=== PATIENT | female | born 2000 | race African-American/Black ===

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

== ENCOUNTER 2020-05-05 13:51 | Emergency (ER) | payer SELFPAY ==
[~2020-05-05] VITALS: Ht 165.1 cm; Wt 72.6 kg
[2020-05-05 14:53] VITALS: BP 141/71
[2020-05-05 16:34] LABS: Urine Bacteria NONE SEEN /hpf (None Seen); Urine Blood Negative /uL (Negative); Urine Specific Gravity 1.026 (1.001-1.035); Urine WBC <1 /hpf (0 - 5)
[2020-05-05] MEDS ORDERED: SODIUM CHLORIDE 0.9% 1,000 ML IV ONE (16:45)
[2020-05-05 17:00] LABS: Basophils # (auto) 0 10 ^3/uL (0-0.2); Monocytes # (auto) 0.6 10 ^3/uL (0-1.3); White Blood Cell 5.3 10^3/uL (4.4-10.8)
[2020-05-05 17:02] LABS: Basophils % (auto) 0.1 % (0.0-2.0); Eosinophils # (auto) 0.1 10 ^3/uL (0-0.8); Eosinophils % (auto) 1.1 % (0.0-7.0); Hematocrit 30.7 % (36.0-46.0); Hemoglobin 10.4 g/dL (12.2-16.2); Lymphocytes # (auto) 1.9 10 ^3/uL (0.4-5.4); Mean Corpuscular Hemoglobin 24.9 pg (28.0-32.0); Mean Corpuscular Hgb Conc. 33.8 g/dL (32.0-36.0); Mean Corpuscular Volume 73.6 fL (80.0-100.0); Monocytes % (auto) 10.6 % (0.0-12.0); Neutrophils # (auto) 2.8 10 ^3/uL (1.6-8.6); Neutrophils % (auto) 53.2 % (37.0-80.0); Nucleated Red Blood Cells % 0.1 %; Platelet Count (auto) 237 10^3/uL (140-450); Red Blood Cells 4.18 10^6/uL (4.0-5.20); Red Cell Distribution Width 16.7 % (11.8-14.3)
[2020-05-05 17:14] LABS: Albumin 3.1 g/dL (3.4-5.0); Calcium 9.8 mg/dL (8.5-10.1); Potassium 3.7 mmol/L (3.5-5.1)
[2020-05-05 17:18] LABS: Bilirubin, Total 0.2 mg/dL (0.2-1.0); Total Protein 7.5 g/dL (6.4-8.2)
[2020-05-05 17:20] LABS: BUN/Creatinine Ratio 15.5
[2020-05-05 19:57] LABS: Amphetamine Screen, Urine NEGATIVE (NEGATIVE); Barbiturate Scree,Urine NEGATIVE (NEGATIVE); Benzodiazephine Screen, Urine NEGATIVE (NEGATIVE); Cannabinoid Screen, Urine NEGATIVE (NEGATIVE); Cocaine Screen, Urine NEGATIVE (NEGATIVE); Opiate Scree,Urine NEGATIVE (NEGATIVE); Phencyclidine Screen, Urine NEGATIVE (NEGATIVE)
[2020-05-05 20:15] LABS: Alcohol, Urine < 3.0 mg/dL (0-10)
== END 2020-05-05 20:32 | disposition home or self-care (01) ==
LOC: ER 13:51
DX: R42 Dizziness and giddiness (principal); Z53.21 Procedure and treatment not carried out due to patient leaving prior to being seen by health care provider
CPT/HCPCS: 36415; 80053; 80307; 81001; 81025; 84484; 84702; 85025

== ENCOUNTER 2020-10-27 14:50 | Observation (INO) | payer MEDICAID ==
[~2020-10-27] VITALS: Ht 167.6 cm; Wt 104.3 kg
[2020-10-27 17:18] LABS: Hemoglobin 9.9 g/dL (12.2-16.2); White Blood Cell 6.1 10^3/uL (4.4-10.8)
[2020-10-27 17:20] LABS: Hematocrit 31.4 % (36.0-46.0); Mean Corpuscular Hgb Conc. 31.6 g/dL (32.0-36.0); Mean Corpuscular Volume 69.7 fL (80.0-100.0); Red Cell Distribution Width 17.8 % (11.8-14.3)
[2020-10-27 17:25] LABS: Albumin 2.5 g/dL (3.4-5.0); Calcium 8.7 mg/dL (8.5-10.1); INR 0.95 (0.9-1.15); Partial Thromboplastin Time 23.3 sec (23.0-31.2); Potassium 3.9 mmol/L (3.5-5.1); Uric Acid 4.9 mg/dL (2.6-6.0)
[2020-10-27 17:27] LABS: Band Neutrophils % (manual) 0; Basophils % (manual) 0 (0.0-2.0); Blast Cells 0; Eosinophils % (manual) 0 (0-7); Metamyelocytes % 0; Myelocytes % 0; Promyelocytes % 0; Reactive Lymphocytes 0
[2020-10-27 17:29] LABS: BUN/Creatinine Ratio 9.8; Bilirubin, Total 0.2 mg/dL (0.2-1.0); Total Protein 7.3 g/dL (6.4-8.2)
[2020-10-27] MEDS ORDERED: ACETAMINOPHEN 325 MG TAB PO ONE (17:30)
[2020-10-27 17:52] LABS: Lymphocytes % (manual) 30 (10.0-50.0); Monocytes % (manual) 14 (0-12)
[2020-10-27 17:53] LABS: Urine Bacteria FEW /hpf (None Seen); Urine Blood Negative /uL (Negative); Urine Specific Gravity 1.014 (1.001-1.035); Urine WBC 3 /hpf (0 - 5)
[2020-10-27 18:06] LABS: Protein, Urine 21.1 mg/dL (0.0-11.9)
[2020-10-27 18:07] LABS: Alcohol, Urine < 3.0 mg/dL (0-10); Amphetamine Screen, Urine NEGATIVE (NEGATIVE); Barbiturate Scree,Urine NEGATIVE (NEGATIVE); Benzodiazephine Screen, Urine NEGATIVE (NEGATIVE); Cannabinoid Screen, Urine NEGATIVE (NEGATIVE); Cocaine Screen, Urine NEGATIVE (NEGATIVE); Opiate Scree,Urine NEGATIVE (NEGATIVE); Phencyclidine Screen, Urine NEGATIVE (NEGATIVE)
== END 2020-10-27 19:38 | disposition home or self-care (01) ==
LOC: LDRP 14:50
PROVIDERS: ADMIT Obstetrics & Gynecology; ATTEND Obstetrics & Gynecology
DX: O99.891 Other specified diseases and conditions complicating pregnancy (principal); M79.641 Pain in right hand; M79.642 Pain in left hand; Z20.822 Contact with and (suspected) exposure to COVID-19; O26.893 Other specified pregnancy related conditions, third trimester; R51.9 Headache, unspecified; O36.8930 Maternal care for other specified fetal problems, third trimester, not applicable or unspecified; J90 Pleural effusion, not elsewhere classified; N94.89 Other specified conditions associated with female genital organs and menstrual cycle; O43.893 Other placental disorders, third trimester; Z3A.37 37 weeks gestation of pregnancy
CPT/HCPCS: 36415; 59025; 76818; 80053; 80307; 81001; 81002; 82570; 84156; 84550; 85007; 85027; 85610; 85730; 87426; G0378; U0003

== ENCOUNTER 2023-08-28 15:47 | Emergency (ER) | payer MEDICAID ==
[~2023-08-28] VITALS: Ht 165.1 cm; Wt 109.8 kg
[2023-08-28 17:10] VITALS: PULSE 103; RESP 16; TEMP 99.2; O2SAT 99
[2023-08-28 17:29] VITALS: BP 167/97
[2023-08-28] MEDS ORDERED: HYDR25TA5 PO (17:32)
[2023-08-28] MEDS ORDERED: TRIA0.02 TOP (17:32)
[2023-08-28] MEDS ORDERED: METH4PAK PO (17:32)
[2023-08-28] MEDS: cloNIDine HCL 0.1 MG TAB PO ONE (17:36)
== END 2023-08-28 17:48 | disposition home or self-care (01) ==
LOC: ER 15:47
DX: L20.89 Other atopic dermatitis (principal); I10 Essential (primary) hypertension

== ENCOUNTER 2024-08-17 03:39 | Emergency (ER) | payer MEDICAID ==
[~2024-08-17] VITALS: Ht 165.1 cm; Wt 100.0 kg
[~2024-08-17 03:39] MED LIST: HYDR25TA5 PO; METH4PAK PO; TRIA0.02 TOP
--- NOTE | 2024-08-17 04:17 | ED.PDOC ---
GI ASSESSMENT HPI Comments 24-year-old female with PMHx HTN presents with a chief complaint of abdominal pain x 2 days with associated urinary dribbling. Patient mentions that her pain is localized to her RLQ, nonradiating, denies any injuries or trauma prior to onset, rates her pain a 8/10. Patient mentions that she has also been having some urinary dribbling on herself for the past x 4 days. Patient denies any back pain or saddle anesthesia. No other symptoms or modifying factors present at this time. Chief Complaint: Abdominal Pain Time Seen by MD: 04:11 Primary Care Provider: NONE Reviewed Notes: Medications, Allergies Allergies: Coded Allergies: NO KNOWN ALLERGIES (Unverified , 08/16/10) Home Meds Active Scripts Hctz (Hydrochlorothiazide) 25 Mg Tab, 25 MG PO DAILY, #20 TAB Prov:ANGELINA TOBAR 08/28/23 Triamcinolone Acetonide (Triamcinolone Acetonide) 0.025 % Cre, 1 APPLIC TOP BID, #30 GRAMS Prov:ANGELINA TOBAR 08/28/23 Methylprednisolone (Medrol Dosepak) 4 Mg Hood, 4 MG PO UD, #21 TAB UAD Prov:ANGELINA TOBAR 08/28/23 Information Source: Patient Mode of Arrival: Ambulatory Timing: Days Duration: Since onset Prehospital treatment: None Quality: Cramping Vomitus: None Stool: Normal Severity: Moderate Recent: None Recent Hx of: None Pain Location: RLQ Associated sign and symptoms: Abdominal Pain Vital Signs Vital Signs Date Time Temp Pulse Resp B/P (MAP) Pulse Ox O2 Delivery O2 Flow Rate FiO2 08/17/24 05:02 87 20 96 Room Air* 0 21 08/17/24 05:00 98.8 150/98 (115) 98.8 Physical Exam General: Awake, alert and oriented. No acute distress. Skin: Skin in warm, dry and intact. Appropriate color for ethnicity. HEENT: The head is normocephalic and atraumatic. Conjunctivae are clear without exudates or hemorrhage. Sclera is non-icteric. EOM are intact. No signs of nystagmus. Eyelids are normal in appearance without swelling or lesions. Oral mucosa is pink and moist Neck: The neck is supple with normal range of motion. No JVD. Cardiac: Heart rate and rhythm are normal. No murmurs, gallops, or rubs are auscultated. Respiratory: No signs of respiratory distress. Lung sounds are clear in all lobes bilaterally without rales, ronchi, or wheezes. Abdominal: Abdomen is soft, positive right flank tenderness, no distention. No CVA tenderness Bowel sounds are present and normoactive in all four quadrants. Extremities: Upper and lower extremities are atraumatic in appearance without deformity or edema. Neurological: The patient is awake, alert and oriented to person, place, and time with normal speech. Speech is clear. There is no facial asymmetry. Psychiatric: Tearful affect Review of Systems: REVIEW OF SYSTEMS: No fever, no chills, or fatigue HEENT: No sore throat, no earache, no congestion, no neck pain. Cardiac: No chest pain. No palpitations. Lungs: No shortness of breath, no cough. GI: No nausea, no vomiting, no diarrhea, no constipation, positive abdominal pain : No dysuria, frequency, or urgency. No hematuria. Positive urinary incontinence Musculoskeletal: No joint pain , no joint swelling, no extremity edema. Skin: No rash, no itching. Neuro: No headache, no dizziness, no weakness Past Medical History PAST MEDICAL HISTORY: Depression, HTN Surgical History: Denies all surgeries HEART SPECIALIST History: No Pertinent HEART SPECIALIST History Family History Family History: Reviewed,noncontributory to illness Social History Smoker: Non-Smoker Alcohol: Denies ETOH Use Drugs: Denies Drug Use Lives In: Home Was a procedure done? Was a procedure done?: No GI differential Dx Differential Diagnosis: Constipation, Diverticular disease, Esophagitis, Gastritis/PUD, Gastroenteritis, Other Other Differential Diagnosis Differential diagnoses considered include: Abdominal aortic aneurysm, LA, esophageal rupture, intestinal obstruction, mesenteric ischemia, perforated viscus or solid organ rupture, CHF with hepatomegaly, pneumonia, abscess, appendicitis, biliary disease, diverticulitis, gastritis, gastroenteritis, hepatitis, hernia, inflammatory bowel disease, pancreatitis, peptic ulcer disease, urinary tract infection, ureteral colic, constipation, GERD, irritable syndrome, abdominal wall pain, nonspecific abdominal pain, herpes zoster. Also ruptured ectopic , ovarian torsion/cyst, tubo-ovarian abscess, PID, endometriosis, mittleschmerz. X-Ray, Labs, Meds, VS Vital Signs Date Time Temp Pulse Resp B/P (MAP) Pulse Ox O2 Delivery O2 Flow Rate FiO2 4/9/25 05:02 87 20 96 Room Air* 0 21 08/17/24 05:00 98.8 87 20 150/98 (115) 96 98.8 08/17/24 03:50 98.8 87 18 150/98 (115) 96 98.8 Lab Test 08/17/24 05:20 08/17/24 04:02 Range/Units White Blood Count 5.2 4.4-10.8 10^3/uL Red Blood Count 4.93 4.0-5.20 10^6/uL Hemoglobin 9.0 L 12.2-16.2 g/dL Hematocrit 29.4 L 36.0-46.0 % Mean Corpuscular Volume 59.6 L 80.0-100.0 fL Mean Corpuscular Hemoglobin 18.3 L 28.0-32.0 pg Mean Corpuscular Hemoglobin Concent 30.8 L 32.0-36.0 g/dL Red Cell Distribution Width 19.3 H 11.8-14.3 % Platelet Count 357 140-450 10^3/uL Mean Platelet Volume 8.3 6.9-10.8 fL Neutrophils (%) (Auto) 40.3 37.0-80.0 % Lymphocytes (%) (Auto) 47.1 10.0-50.0 % Monocytes (%) (Auto) 10.6 0.0-12.0 % Eosinophils (%) (Auto) 1.7 0.0-7.0 % Basophils (%) (Auto) 0.3 0.0-2.0 % Neutrophils # (Auto) 2.1 1.6-8.6 10 ^3/uL Lymphocytes # (Auto) 2.4 0.4-5.4 10 ^3/uL Monocytes # (Auto) 0.5 0-1.3 10 ^3/uL Eosinophils # (Auto) 0.1 0-0.8 10 ^3/uL Basophils # (Auto) 0 0-0.2 10 ^3/uL Nucleated Red Blood Cells 0.0 % Platelet Estimate Adequate Hypochromasia (manual) Marked Anisocytosis (manual) Slight Microcytosis Marked Target Cells Few Schistocytes Few Sodium Level 137 136-145 mmol/L Potassium Level 3.4 L 3.5-5.1 mmol/L Chloride Level 105 98-107 mmol/L Carbon Dioxide Level 22 20-31 mmol/L Anion Gap 10 5-15 Blood Urea Nitrogen 10 9-23 mg/dL Creatinine 0.86 0.550-1.02 mg/dL Glomerular Filtration Rate Calc 97 >90 mL/min BUN/Creatinine Ratio 11.6 10.0-20.0 Serum Glucose 92 74-106 mg/dL Calcium Level 10.5 H 8.7-10.4 mg/dL Total Bilirubin 0.3 0.2-1.0 mg/dL Aspartate Amino Transferase (AST) 9 L 13-40 U/L Alanine Aminotransferase (ALT) < 9 7-40 U/L Alkaline Phosphatase 91 46-116 U/L Total Protein 8.5 H 5.7-8.2 g/dL Albumin 4.7 3.2-4.8 g/dL Lipase 36 12-53 U/L Urine Color Light-yellow Yellow Urine Clarity Clear Clear Urine pH 6.5 5.0-9.0 Urine Specific [place] 1.016 1.001-1.035 Urine Protein Negative Negative Urine Ketones Negative Negative Urine Blood Negative Negative /uL Urine Nitrite Negative Negative Urine Bilirubin Negative Negative Urine Urobilinogen Normal Negative mg/dL Urine Leukocyte Esterase Negative Negative /uL Urine RBC <1 0 - 4 /hpf Urine Microscopic WBC 1 0-5 /HPF Urine Squamous Epithelial Cells Few <5 /hpf Urine Bacteria None seen None Seen /hpf Urine Glucose Normal Normal mg/dL Urine Test Negative Negative Current Medications Medications (Trade) Dose Ordered Sig/Maxim Route Start Time Stop Time Status Last Admin Ketorolac Tromethamine (Toradol Injection) 30 mg ONCE ONCE IM 08/17/24 04:15 08/17/24 04:17 DC 08/17/24 04:55 Acetaminophen (Tylenol Tablet) 650 mg ONCE ONCE PO 08/17/24 04:15 08/17/24 04:17 DC 08/17/24 04:55 Time of 1ST Reevaluation: 04:41 Reevaluation 1ST: Unchanged Patient Education/Counseling: Need For Follow Up Family Education/Counseling: No Family Present Departure 1 Departure Time of Disposition: 05:41 Impression: Primary Impression: Abdominal pain Qualified Codes: R10.84 - Generalized abdominal pain Additional Impression: Non-specific colitis Disposition: ADMITTED INPATIENT Admit to: Med Surg Condition: Guarded Critical Care Note Critical Care Time?: No Stability Stability form required: No Heart Score Heart Score: Heart Score Response (Comments) Value History N/A 0 EKG N/A 0 Age N/A 0 Risk Factors N/A 0 Troponin N/A 0 Total 0 I personally scribed for ANGELES PHILIP MD ([email or web address]) on 08/17/24 at 04:17. Electronically submitted by Erasmo Johns ([email or web address]). ANGELES PHILIP MD Aug 17, 2024 04:17 FANNY RUBIO MD Aug 17, 2024 07:15
[2024-08-17 04:28] LABS: Urine Bacteria None Seen /hpf (None Seen)
[2024-08-17 04:45] LABS: Urine Blood Negative /uL (Negative); Urine Clarity Clear (Clear); Urine Color Light-Yellow (Yellow); Urine Protein, UAD Negative (Negative); Urine Specific Gravity 1.016 (1.001-1.035); Urine Squamous Epithelial Cell FEW /hpf (<5); Urine Urobilinogen Normal (Negative); Urine WBC 1 /HPF (0-5); Urine pH 6.5 (5.0-9.0)
[2024-08-17] MEDS: KETOROLAC TROMETH 30 MG/ML 1ML VIAL IM ONE (04:55)
[2024-08-17] MEDS: ACETAMINOPHEN 325 MG TAB PO ONE (04:55)
[2024-08-17 05:00] VITALS: BP 150/98; TEMP 98.8
[2024-08-17 05:02] VITALS: PULSE 87; RESP 20; O2SAT 96
[2024-08-17 06:00] LABS: Basophils # (auto) 0 10 ^3/uL (0-0.2); Basophils % (auto) 0.3 % (0.0-2.0); Eosinophils # (auto) 0.1 10 ^3/uL (0-0.8); Eosinophils % (auto) 1.7 % (0.0-7.0); Hematocrit 29.4 % (36.0-46.0); Lymphocytes # (auto) 2.4 10 ^3/uL (0.4-5.4); Lymphocytes % (auto) 47.1 % (10.0-50.0); Mean Corpuscular Hemoglobin 18.3 pg (28.0-32.0); Mean Corpuscular Hgb Conc. 30.8 g/dL (32.0-36.0); Mean Corpuscular Volume 59.6 fL (80.0-100.0); Monocytes # (auto) 0.5 10 ^3/uL (0-1.3); Monocytes % (auto) 10.6 % (0.0-12.0); Neutrophils # (auto) 2.1 10 ^3/uL (1.6-8.6); Neutrophils % (auto) 40.3 % (37.0-80.0); Platelet Count (auto) 357 10^3/uL (140-450); Red Blood Cells 4.93 10^6/uL (4.0-5.20); Red Cell Distribution Width 19.3 % (11.8-14.3); White Blood Cell 5.2 10^3/uL (4.4-10.8)
--- NOTE | 2024-08-17 06:07 | DVH ---
EXAM: CT CT AB PEL WO CON-NO ORAL OR IV HISTORY: Right flank tenderness COMPARISON: None TECHNIQUE: Helical CT images of the abdomen and pelvis were performed without IV contrast. Sagittal a nd coronal reformatted images were obtained. This CT exam was performed using one or more of the foll owing dose reduction techniques: Automated exposure control, adjustment of the mA and/or kv according to patient size, or the use of iterative reconstruction techniques. Radiation Dose: Abdomen/Pelvis: CTDIvol 13.53 mGy, DLP 734.2 mGy*cm. FINDINGS: CT abdomen: The lung bases are clear. The heart is not enlarged. The noncontrast liver, spleen, gallb ladder, pancreas, kidneys, and adrenal glands are unremarkable. No abdominal aortic aneurysm. CT pelvis: No abnormal bowel dilatation, free air, or free fluid. There is fecal retention in the asc ending colon, transverse colon, and rectum. The urinary bladder is decompressed. The appendix does n ot appear dilated or inflamed. IMPRESSION: 1. Fecal retention in the colon which may indicate constipation. 2. No evidence of bowel obstruction, urinary tract obstruction, acute appendicitis, or other acute pr ocess in the abdomen or pelvis.
[2024-08-17 06:15] LABS: Anisocytosis Slight; Hypochromia Marked; Platelet Estimate Adequate; Target Cell FEW
[2024-08-17 06:19] LABS: Albumin 4.7 g/dL (3.2-4.8); Alkaline Phosphatase 91 U/L (46-116); Anion Gap 10 (5-15); BUN/Creatinine Ratio 11.6 (10.0-20.0); Blood Urea Nitrogen 10 mg/dL (9-23); Carbon Dioxide 22 mmol/L (20-31); Chloride 105 mmol/L (98-107); Glucose 92 mg/dL (74-106); Lipase 36 U/L (12-53); Sodium 137 mmol/L (136-145)
[2024-08-17 06:39] LABS: Alanine Aminotransferase < 9 U/L (7-40); Aspartate Aminotransferase 9 U/L (13-40); Bilirubin, Total 0.3 mg/dL (0.2-1.0); Calcium 10.5 mg/dL (8.7-10.4); Potassium 3.4 mmol/L (3.5-5.1); Total Protein 8.5 g/dL (5.7-8.2)
== END 2024-08-17 09:10 | disposition left against medical advice (07) ==
LOC: ER 03:39
DX: R10.31 Right lower quadrant pain (principal); K52.9 Noninfective gastroenteritis and colitis, unspecified; I10 Essential (primary) hypertension; F32.A Depression, unspecified; Z79.899 Other long term (current) drug therapy
CPT/HCPCS: 36415; 74176; 80053; 81001; 81025; 83690; 85025; 96372; 99285; J1885

== ENCOUNTER 2025-01-19 17:01 | Emergency (ER) | payer MEDICAID ==
[~2025-01-19] VITALS: Ht 165.1 cm; Wt 97.9 kg
[2025-01-19 17:02] VITALS: BP 158/92; PULSE 78; RESP 18; TEMP 97.3; O2SAT 98
[2025-01-19] MEDS ORDERED: ACETAMINOPHEN 325 MG TAB PO ONE (17:15)
--- NOTE | 2025-01-19 17:55 | ED.PDOC ---
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 Patient reports, that she is currently [id number] and has began to experience abdominal cramping sudden onset, today (01/19/25). Patient relays that she currently does not have an OB-GUARD IMMIGRATION, and has not seen a provider since, the start of her . Patient denies any trauma, injury fall, or vaginal bleeding. No other symptoms or modifying factors are present at this time. Vital signs were stable on arrival. Chief Complaint: Abdominal Pain Time Seen by MD: 17:50 Reviewed Notes: Nurses Notes, Medications, Allergies Allergies: Coded Allergies: NO KNOWN ALLERGIES (Unverified , 08/16/10) Home Meds Active Scripts Hctz (Hydrochlorothiazide) 25 Mg Tab, 25 MG PO DAILY, #20 TAB Prov:ANGELINA TOBAR 08/28/23 Triamcinolone Acetonide (Triamcinolone Acetonide) 0.025 % Cre, 1 APPLIC TOP BID, #30 GRAMS Prov:ANGELINA TOBAR 08/28/23 Methylprednisolone (Medrol Dosepak) 4 Mg Hood, 4 MG PO UD, #21 TAB UAD Prov:ANGELINA TOBAR 08/28/23 Information Source: Patient, Friend Mode of Arrival: Ambulatory Timing: Hours Prehospital treatment: None Severity: None Vaginal Discharge: None Vaginal Lesions: None Vaginal Mass: None Sexual Activity: Last Consensual [place]: Unknown Control: None History of: Current Associated Signs and Symptoms: Cramping Past Medical History PAST MEDICAL HISTORY: Depression, HTN Past Medical History (Other): Patient states she is currently 17 weeks Surgical History: Denies all surgeries GUARD IMMIGRATION History: No Pertinent GUARD IMMIGRATION History Family History Family History: Reviewed,noncontributory to illness Social History Smoker: Non-Smoker Alcohol: Denies ETOH Use Drugs: Denies Drug Use Lives In: Home Constitutional: denies: chills, diaphoresis, fatigue, fever, malaise, sweats, weakness, others EENTM: denies: blurred vision, double vision, ear bleeding, ear discharge, ear drainage, ear pain, ear ringing, eye pain, eye redness, hearing loss, mouth pain, mouth swelling, nasal discharge, nose bleeding, nose congestion, nose pain, photophobia, tearing, throat pain, throat swelling, voice changes, others Respiratory: denies: cough, hemoptysis, orthopnea, SOB at rest, shortness of breath, SOB with excertion, stridor, wheezing, others Cardiovascular: denies: chest pain, dizzy spells, diaphoresis, Dyspnea on exertion, edema, irregular heart beat, left arm pain, lightheadedness, palpitations, PND, syncope, others Gastrointestinal: reports: abdominal pain, others (abdominal cramping); denies: abdomen distended, blood streaked bowels, constipated, diarrhea, dysphagia, difficulty swallowing, hematemesis, melena, nausea, poor appetite, poor fluid intake, rectal bleeding, rectal pain, vomiting Genitourinary: denies: abnormal vagina bleeding, burning, dyspareunia, dysuria, flank pain, frequency, hematuria, incontinence, pain, , vagina discharge, urgency, others Neurological: denies: dizziness, fainting, headache, left sided numbness, left sided weakness, numbness, paresthesia, pre-existing deficit, right sided numbness, right sided weakness, seizure, speech problems, tingling, tremors, weakness, others Musculoskeletal: denies: back pain, gout, joint pain, joint swelling, muscle pain, muscle stiffness, neck pain, others Integumetry: denies: bruises, change in color, change in hair/nails, dryness, laceration, lesions, lumps, rash, wounds, others Allergic/Immunocompromised: denies: Difficulty Healing, Frequent Infections, Hives, Itching, others Hematologic/Lymphatic: denies: anemia, blood clots, easy bleeding, easy bruising, swollen glands, others Endocrine: denies: excessive hunger, excessive sweating, excessive thirst, excessive urination, flushing, intolerance to cold, intolerance to heat, unexplained weight gain, unexplained weight loss, others Psychiatric: denies: anxiety, bipolar disorder, depression, hopeless, panic disorder, schizophrenia, sleepless, suicidal, others All Other Systems: Reviewed and Negative Physical Exam General Appearance: Mild Distress (Moderate distress due to abdominal pain concerns.), Normal HEENT: Normal ENT Inspection, Pharynx Normal, TMs Normal Neck: Full Range of Motion, Non-Tender, Normal, Normal Inspection Respiratory: Chest Non-Tender, Lungs Clear, No Accessory Muscle Use, No Respiratory Distress, Normal Breath Sounds Cardiovascular: No Edema, No JVD, No Murmur, No Gallop, Normal Peripheral Pulses, Regular Rate/Rhythm Breast Exam: Deferred Gastrointestinal: Other (Abdominal exam was relatively unremarkable. Diffuse tenderness to palpation throughout. appreciated. No signs of trauma. No pulsatile masses.) Genitalia: Deferred Pelvic: Deferred Rectal: Deferred Extremities: No calf tenderness, Normal capillary refill, Normal inspection, Normal range of motion, Non-tender, No pedal edema Neurologic: Alert, No Motor Deficits, Normal Affect, Normal Mood, No Sensory Deficits Cerebellar Function: NOT DONE Reflexes: NOT DONE Skin: Dry, Normal Color, Warm Lymphatic: No Adenopathy Was a procedure done? Was a procedure done?: No Differential Diagnosis (GUARD IMMIGRATION) Vaginal Bleeding: - Threatened, Other (Patient , UTI, sepsis, electrolyte abnormality) X-Ray, Labs, Meds, VS Vital Signs Date Time Temp Pulse Resp B/P (MAP) Pulse Ox O2 Delivery O2 Flow Rate FiO2 01/19/25 17:02 97.3 78 18 158/92 98 97.3 X-Ray, Labs, Meds, VS Comment All studies performed the ED were evaluated by me personally. OB ultrasound confirmed a single live intrauterine and dated at 17 weeks and six days. [employer] notified me that they attempted to locate the patient multiple times for laboratories, but it appears the patient has a eloped from the facility. 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 Electronically submitted by Stephanie Wong [email or web address]). NURYS LION PAC Jan 19, 2025 17:55
--- NOTE | 2025-01-19 17:57 | DVH ---
LIMITED OB ULTRASOUND > 14 WKS: HISTORY: Abdominal pain TECHNIQUE: Multiple real-time grayscale images of the gravid uterus with duplex Doppler color flow an d M-mode spectral analysis. TRANSDUCER: Transabdominal COMPARISON: None FINDINGS: IUP single live fetus at 17 weeks and 6 days based on composite averages of the BPD, head circumferen ce, abdominal circumference and femur length Estimated weight 209 grams heart rate 166 beats per minute LINA is subjectively within normal limits Cervix is closed Variable Presentation PosteriorPlacenta without previa or abruption. IMPRESSION: IUP single live fetus at 17 weeks and 6 days AUA corresponding to an CHAVEZ of 06/23/2025 6.8 cm hypoechoic structure in the anterior uterus adjacent to the gestational sac. This may represe nt a transient Blaine Jacob contraction or fibroid.
== END 2025-01-19 19:24 | disposition left against medical advice (07) ==
LOC: ER 17:05
DX: O26.892 Other specified pregnancy related conditions, second trimester (principal); F32.A Depression, unspecified; I10 Essential (primary) hypertension; Z79.899 Other long term (current) drug therapy; Z3A.17 17 weeks gestation of pregnancy
CPT/HCPCS: 76805

== ENCOUNTER 2025-04-29 14:04 | Emergency (ER) | payer MEDICAID ==
[~2025-04-29] VITALS: Ht 177.8 cm; Wt 90.7 kg
[2025-04-29] MEDS ORDERED: hydrALAZINE HCL 20 MG/ML VL IV ONE (14:05)
[2025-04-29 14:10] VITALS: PULSE 94; RESP 16; O2SAT 96
[2025-04-29] MEDS: hydrALAZINE HCL 20 MG/ML VL IV ONE (14:13)
[2025-04-29] MEDS: SODIUM CHLORIDE 0.9% 1,000 ML IV SCH (14:15)
[2025-04-29] MEDS ORDERED: hydrALAZINE HCL 20 MG/ML VL IV PRN (14:15)
[2025-04-29] MEDS: MAGNESIUM SULFATE 1GM/100ML 100 ML IV SCH (14:15)
[2025-04-29] MEDS ORDERED: NIFEdipine 10 MG CAP PO PRN ×2 (14:15)
[2025-04-29] MEDS ORDERED: LABETALOL HCL 200 MG TAB PO PRN (14:15)
--- NOTE | 2025-04-29 14:19 | ED.PDOC ---
HPI (NEURO) HPI Comments This is a 25 year old female EDWINA presenting to the ED with chief complaint of seizure. EMS reports that the patient was witnessed by spouse in bed to have a tonic-clonic seizure lasting 3 minutes with foaming at the mouth noted. EMS relays patient is currently 7 months with an CHAVEZ of of 06/27/2025. EMS states patient vomited once en route to the ED. EMS notes patient has not been speaking since her seizure, but is able to follow commands and will nod or shake her head to questions asked. Patient unable to provide further history at this time. Time Seen by MD: 14:14 Primary Care Provider: NONE Reviewed Notes: Nurses Notes, Material Worker Notes, Medications, Allergies Information Source: Patient, Emergency Med Personnel Mode of Arrival: EMS Severity: Severe Timing: Minutes Duration: Minutes Prehospital treatment: None Seizure Quality: Tonic-clonic Seizure Location: Generalized Onset: At rest Circumstances: Spontaneous Before: Normal During: Awake History of: Other () Past Medical History PAST MEDICAL HISTORY: Depression, HTN Surgical History: Denies all surgeries KNOCKDOWN WORKER History: No Pertinent KNOCKDOWN WORKER History Family History Family History: Reviewed,noncontributory to illness Social History Smoker: Non-Smoker Alcohol: Denies ETOH Use Drugs: Denies Drug Use Lives In: Home Constitutional: denies: chills, diaphoresis, fatigue, fever, malaise, sweats, weakness, others EENTM: denies: blurred vision, double vision, ear bleeding, ear discharge, ear drainage, ear pain, ear ringing, eye pain, eye redness, hearing loss, mouth pain, mouth swelling, nasal discharge, nose bleeding, nose congestion, nose pain, photophobia, tearing, throat pain, throat swelling, voice changes, others Respiratory: denies: cough, hemoptysis, orthopnea, SOB at rest, shortness of breath, SOB with excertion, stridor, wheezing, others Cardiovascular: denies: chest pain, dizzy spells, diaphoresis, Dyspnea on exertion, edema, irregular heart beat, left arm pain, lightheadedness, palpitations, PND, syncope, others Gastrointestinal: denies: abdomen distended, abdominal pain, blood streaked bowels, constipated, diarrhea, dysphagia, difficulty swallowing, hematemesis, melena, nausea, poor appetite, poor fluid intake, rectal bleeding, rectal pain, vomiting, others Genitourinary: reports: ; denies: abnormal vagina bleeding, burning, dyspareunia, dysuria, flank pain, frequency, hematuria, incontinence, pain, vagina discharge, urgency, others Neurological: reports: seizure; denies: dizziness, fainting, headache, left sided numbness, left sided weakness, numbness, paresthesia, pre-existing deficit, right sided numbness, right sided weakness, speech problems, tingling, tremors, weakness, others Musculoskeletal: denies: back pain, gout, joint pain, joint swelling, muscle pain, muscle stiffness, neck pain, others Integumetry: denies: bruises, change in color, change in hair/nails, dryness, laceration, lesions, lumps, rash, wounds, others Allergic/Immunocompromised: denies: Difficulty Healing, Frequent Infections, Hives, Itching, others Hematologic/Lymphatic: denies: anemia, blood clots, easy bleeding, easy bruising, swollen glands, others Endocrine: denies: excessive hunger, excessive sweating, excessive thirst, excessive urination, flushing, intolerance to cold, intolerance to heat, unexplained weight gain, unexplained weight loss, others Psychiatric: denies: anxiety, bipolar disorder, depression, hopeless, panic disorder, schizophrenia, sleepless, suicidal, others All Other Systems: Reviewed and Negative Physical Exam General Appearance: No Apparent Distress, Normal HEENT: Normal ENT Inspection, Pharynx Normal, TMs Normal Neck: Full Range of Motion, Non-Tender, Normal, Normal Inspection Respiratory: Chest Non-Tender, Lungs Clear, No Accessory Muscle Use, No Re spiratory Distress, Normal Breath Sounds Cardiovascular: No Edema, No JVD, No Murmur, No Gallop, Normal Peripheral Pulses, Regular Rate/Rhythm Breast Exam: Deferred Gastrointestinal: No Organomegaly, Non Tender, No Pulsatile Mass, Normal Bowel Sounds, Other (Gravid abdomen) Genitalia: Deferred Pelvic: Deferred Rectal: Deferred Extremities: No calf tenderness, Normal capillary refill, Normal inspection, Normal range of motion, Non-tender, No pedal edema Musculoskeletal : Apperance: Normal 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 Was a procedure done?: No Differential Diagnosis (SZ) Seizure: Eclampsia X-Ray, Labs, Meds, VS Vital Signs Date Time Temp Pulse Resp B/P (MAP) Pulse Ox O2 Delivery O2 Flow Rate FiO2 04/29/25 15:14 186/88 04/29/25 15:10 98.4 83 19 172/95 (120) 99 98.4 04/29/25 14:32 88 18 140/84 (102) 99 04/29/25 14:26 89 18 152/96 (114) 98 04/29/25 14:24 86 22 171/100 (123) 98 04/29/25 14:18 94 25 179/113 (135) 98 04/29/25 14:16 98.7 94 16 180/140 96 98.7 04/29/25 14:13 172/122 04/29/25 14:13 87 04/29/25 14:12 95 22 172/122 (139) 98 04/29/25 14:10 94 16 96 Room Air* 0 21 04/29/25 14:10 98.7 94 16 180/140 (153) 96 98.7 Lab Test 04/29/25 14:40 04/29/25 14:23 Range/Units Urine Color Pending Urine Clarity Pending Urine pH Pending Urine Specific [place] Pending Urine Protein Pending Urine Ketones Pending Urine Blood Pending Urine Nitrite Pending Urine Bilirubin Pending Urine Urobilinogen Pending Urine Leukocyte Esterase Pending Urine RBC Pending Urine Microscopic WBC Pending Urine Squamous Epithelial Cells Pending Urine Bacteria Pending Urine Glucose Pending White Blood Count 5.3 4.4-10.8 10^3/uL Red Blood Count 4.65 4.0-5.20 10^6/uL Hemoglobin 9.2 L 12.2-16.2 g/dL Hematocrit 29.9 L 36.0-46.0 % Mean Corpuscular Volume 64.2 L 80.0-100.0 fL Mean Corpuscular Hemoglobin 19.9 L 28.0-32.0 pg Mean Corpuscular Hemoglobin Concent 31.0 L 32.0-36.0 g/dL Red Cell Distribution Width 21.1 H 11.8-14.3 % Platelet Count 281 140-450 10^3/uL Mean Platelet Volume 8.2 6.9-10.8 fL Neutrophils (%) (Auto) 57.8 37.0-80.0 % Lymphocytes (%) (Auto) 30.5 10.0-50.0 % Monocytes (%) (Auto) 10.9 0.0-12.0 % Eosinophils (%) (Auto) 0.2 0.0-7.0 % Basophils (%) (Auto) 0.6 0.0-2.0 % Neutrophils # (Auto) 3.1 1.6-8.6 10 ^3/uL Lymphocytes # (Auto) 1.6 0.4-5.4 10 ^3/uL Monocytes # (Auto) 0.6 0-1.3 10 ^3/uL Eosinophils # (Auto) 0 0-0.8 10 ^3/uL Basophils # (Auto) 0 0-0.2 10 ^3/uL Nucleated Red Blood Cells 0.2 % Prothrombin Time 10.1 9.3-11.8 sec Prothrombin Time INR 0.95 0.9-1.15 Activated Partial Thromboplast Time 26.9 24.5-34.5 SEC Fibrinogen 586 H 177-375 mg/dL Fibrin Degradation Products Pending D-Dimer, Quantitative 2.05 H 0.0-0.49 mg/L FEU Sodium Level 139 136-145 mmol/L Potassium Level 3.6 3.5-5.1 mmol/L Chloride Level 106 98-107 mmol/L Carbon Dioxide Level 17 L 20-31 mmol/L Anion Gap 16 H 5-15 Blood Urea Nitrogen < 5 L 9-23 mg/dL Creatinine 0.74 0.550-1.02 mg/dL Glomerular Filtration Rate Calc 115 >90 mL/min BUN/Creatinine Ratio 6.8 L 10.0-20.0 Serum Glucose 88 74-106 mg/dL Uric Acid 8.6 H 3.1-7.8 mg/dL Calcium Level 9.0 8.7-10.4 mg/dL Magnesium Lvl (Mg Sulfate Therapy) 1.72 L 4.0-7.1 mg/dL Total Bilirubin 0.3 0.2-1.0 mg/dL Aspartate Amino Transferase (AST) 13 13-40 U/L Alanine Aminotransferase (ALT) < 9 7-40 U/L Alkaline Phosphatase 129 H 46-116 U/L Lactate Dehydrogenase 232 120-246 U/L Total Protein 7.4 5.7-8.2 g/dL Albumin 3.7 3.2-4.8 g/dL Current Medications Medications (Trade) Dose Ordered Sig/Maxim Route Start Time Stop Time Status Last Admin Hydralazine HCl (Apresoline Injection) 10 mg ONCE ONCE IV 04/29/25 14:15 04/29/25 14:16 DC 04/29/25 14:13 Hydralazine HCl (Apresoline Injection) 5 mg Q20MP PRN IV 04/29/25 14:15 04/29/25 15:14 Lactated Ringer's 1,000 ml @ 75 mls/hr [id number] IV 04/29/25 14:30 04/29/25 14:22 Magnesium Sulfate 1,000 ml @ 50 mls/hr Q20H IV 04/29/25 14:30 04/29/25 14:37 Magnesium Sulfate 100 ml @ 300 mls/hr ONCE ONCE IV 04/29/25 14:30 04/29/25 14:49 DC 04/29/25 14:22 Lorazepam (Ativan Inj) 4 mg ONCE ONCE IV 04/29/25 14:30 04/29/25 14:32 DC 04/29/25 15:02 Betamethasone Acet/Betameth SodPhos (Celestone Injection) 12 mg ONCE ONCE IM 04/29/25 14:30 04/29/25 14:32 DC 04/29/25 14:43 Time of 1ST Reevaluation: 15:14 Reevaluation 1ST: Improved Patient Education/Counseling: Pt Unresponsive Family Education/Counseling: No Family Present Departure 1 Departure Time of Disposition: 15:50 (While patient was here patient related that she is on Tegretol so patient obviously has seizure disorder. Patient also is on 100 labetalol at home for hypertension however patient has been noncompliant with her medications. Patient does not appear to have HELLP syndrome given her normal labs. Patient was accepted as an emergent transfer to [place]. Called to helicopter and we will syndrome.) Impression: Primary Impression: Eclampsia Disposition: 02 SHORT TERM HOSPITAL Condition: Critical Critical Care Note Critical Care Time?: Yes Critical care comment: Eclampsia Authorized and Performed by: Lina Lorenz MD Total critical care time: Approximately 111 minutes Due to a high probability of clinically significant, life threatening deterioration, the patient required my highest level of preparedness to intervene emergently and I personally spent this critical care time directly and personally managing the patient. This critical care time included obtaining a history; examining the patient; pulse oximetry; ordering and review of studies; arranging urgent treatment with development of a management plan; evaluation of patient's response to treatment; frequent reassessment; and, discussions with other providers. This critical care time was performed to assess and manage the high probability of imminent, life-threatening deterioration that could result in multi-organ failure. It was exclusive of separately billable procedures and treating other patients and teaching time. Please see my other sections and the rest of the note for further information on patient assessment and treatment. Stability Stability form required: No Heart Score Heart Score: Heart Score Response (Comments) Value History N/A 0 EKG N/A 0 Age N/A 0 Risk Factors N/A 0 Troponin N/A 0 Total 0 I personally scribed for LINA LORENZ MD ([email or web address]) on 04/29/25 at 14:19. Electronically submitted by Ramon Yanez ([email or web address]). LINA LORENZ MD Apr 29, 2025 14:19
--- NOTE | 2025-04-29 14:21 | ECG ---
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
[2025-04-29] MEDS: LACTATED RINGER'S 1,000 ML IV SCH (14:22)
[2025-04-29] MEDS: MAGNESIUM SULFATE 100 ML IV ONE (14:22)
[2025-04-29] MEDS: MAGNESIUM SULFATE 40MG/ML 1,000 ML IV SCH (14:37)
[2025-04-29 14:40] LABS: Hemoglobin 9.2 g/dL (12.2-16.2)
[2025-04-29 14:42] LABS: Hematocrit 29.9 % (36.0-46.0); Mean Corpuscular Hemoglobin 19.9 pg (28.0-32.0); Mean Corpuscular Volume 64.2 fL (80.0-100.0); Nucleated Red Blood Cells % 0.2 %
[2025-04-29] MEDS: BETAMETHASONE ACET (30mg/5ml) 5ml Vial 6mg/ml IM ONE (14:43)
[2025-04-29 14:53] LABS: Albumin 3.7 g/dL (3.2-4.8); Anion Gap 16 (5-15); Calcium 9.0 mg/dL (8.7-10.4); Chloride 106 mmol/L (98-107); Glucose 88 mg/dL (74-106); Potassium 3.6 mmol/L (3.5-5.1); Sodium 139 mmol/L (136-145); Total Protein 7.4 g/dL (5.7-8.2); Uric Acid 8.6 mg/dL (3.1-7.8)
[2025-04-29 14:58] LABS: Alanine Aminotransferase < 9 U/L (7-40); Alkaline Phosphatase 129 U/L (46-116); BUN/Creatinine Ratio 6.8 (10.0-20.0); Bilirubin, Total 0.3 mg/dL (0.2-1.0); Blood Urea Nitrogen < 5 mg/dL (9-23); Carbon Dioxide 17 mmol/L (20-31)
[2025-04-29 15:00] LABS: INR 0.95 (0.9-1.15); Partial Thromboplastin Time 26.9 SEC (24.5-34.5); Prothrombin Time 10.1 sec (9.3-11.8)
[2025-04-29] MEDS: LORazepam 2MG/ML-1ML VIAL IV ONE (15:02)
[2025-04-29 15:10] VITALS: BP 172/95; PULSE 83; RESP 19; TEMP 98.4; O2SAT 99
[2025-04-29] MEDS: hydrALAZINE HCL 20 MG/ML VL IV PRN (15:14)
== END 2025-04-29 17:06 | disposition short-term general hospital (02) ==
LOC: ER 14:04 → EDBD 14:04 → ER 17:06
DX: O15.03 Eclampsia complicating pregnancy, third trimester (principal); F32.A Depression, unspecified; Z3A.28 28 weeks gestation of pregnancy
CPT/HCPCS: 36415; 80053; 82947; 83615; 83735; 84550; 85025; 85362; 85379; 85384; 85610; 85730; 93005; 96365; 96372; 96375; 96376; 99291; 99292; J0360; J0702; J2060; J3475